=== PATIENT | male | born 1945 | race Caucasian/White ===

== ENCOUNTER 2021-01-03 18:16 | Inpatient (IN) | payer MEDICARE, OTHER ==
[~2021-01-03] VITALS: Ht 172.7 cm; Wt 76.7 kg
[~2021-01-03 18:16] MED LIST: KEFLEX CAP 500500 MG PO
[2021-01-03 19:32] LABS: HEMOGLOBIN 13.7 gm/dl (14.0-17.5); RED BLOOD COUNT 4.59 M/UL (4.20-5.50); WHITE BLOOD COUNT 8.7 K/UL (4.5-11.0)
[2021-01-03 19:59] LABS: BUN/CREATININE RATIO 13 (0-10)
[2021-01-03 20:52] LABS: ADENOVIRUS F 40/41 Not Detected (Negative); ASTROVIRUS Not Detected (Negative); CAMPYLOBACTER Not Detected (Negative); CLOSTRIDIUM DIFFICILE TOX A/B Not Detected (Negative); CRYPTOSPORIDIUM Not Detected (Negative); E.COLI 0157 Not Detected (Negative); ENTAMOEBA HISTOLYTICA Not Detected (Negative); ENTEROAGGREGATIVE E.COLI (EAEC Not Detected (Negative); ENTEROPATHOGENIC E.COLI (EPEC) Not Detected (Negative); ENTEROTOXIGENIC E.COLI (ETEC) Not Detected (Negative); GIARDIA LAMBLIA Not Detected (Negative); NOROVIRUS GI/GII Not Detected (Negative); PLESIOMONAS SHIGELLOIDES Not Detected (Negative); ROTOVIRUS A Not Detected (Negative); SALMONELLA Not Detected (Negative); SAPOVIRUS Not Detected (Negative); SHIG/ENTEROINVAS.ECOLI (EIEC) Not Detected (Negative); SHIGA-LIK TOX.PRO.E.COLI (STEC Not Detected (Negative); VIBRIO Not Detected (Negative); VIBRIO CHOLERAE Not Detected (Negative); YERSINIA ENTEROCOLITICA Not Detected (Negative)
[2021-01-04 04:42] LABS: HEMOGLOBIN 11.5 gm/dl (14.0-17.5); RED BLOOD COUNT 3.88 M/UL (4.20-5.50); WHITE BLOOD COUNT 4.8 K/UL (4.5-11.0)
[2021-01-04 05:16] LABS: BUN/CREATININE RATIO 16 (0-10)
[2021-01-04] MEDS ORDERED: PROAIR DIGIHAL90 MCG INH (12:50)
[2021-01-04] MEDS ORDERED: OXYCODONE-ACET1 EACH PO (12:50)
[2021-01-04] MEDS ORDERED: ATORVASTATIN CA40 MG PO (12:51)
[2021-01-04] MEDS ORDERED: BUPROPION HCL150 M1 PO (12:52)
[2021-01-04] MEDS ORDERED: LISINOPRIL10 MG PO (12:53)
[2021-01-04] MEDS ORDERED: FINASTERIDE5 MG PO (12:53)
[2021-01-04] MEDS ORDERED: CLOPIDOGREL75 MG PO (12:53)
[2021-01-04] MEDS ORDERED: METOPROLOL SUCC50 MG PO (12:54)
[2021-01-04] MEDS ORDERED: PANTOPRAZOLE SO20 MG PO (12:54)
[2021-01-04] MEDS ORDERED: CYCLOBENZAPRINE10 MG PO (12:55)
[2021-01-04] MEDS ORDERED: FLOMAX 0.4 MG0.4 MG PO (12:55)
[2021-01-04] MEDS ORDERED: ZOCOR40 MG PO (12:58)
[2021-01-04] MEDS ORDERED: NITROSTAT0.4 MG SL (12:59)
[2021-01-04] MEDS ORDERED: SPIRIVA HANDIH18 MCG INH (13:00)
[2021-01-04] MEDS ORDERED: ASPIRIN EC81 MG PO (13:00)
[2021-01-05 04:33] LABS: HEMOGLOBIN 13.6 gm/dl (14.0-17.5); RED BLOOD COUNT 4.6 M/UL (4.20-5.50); WHITE BLOOD COUNT 6.6 K/UL (4.5-11.0)
[2021-01-05 04:56] LABS: BUN/CREATININE RATIO 28 (0-10)
[2021-01-06 07:03] LABS: HEMOGLOBIN 13.4 gm/dl (14.0-17.5); RED BLOOD COUNT 4.53 M/UL (4.20-5.50); WHITE BLOOD COUNT 7.7 K/UL (4.5-11.0)
[2021-01-06 08:21] LABS: BUN/CREATININE RATIO 27 (0-10)
[2021-01-06] MEDS ORDERED: ELIQUIS 5 MG TAB5 MG PO (11:50)
[2021-01-06] MEDS ORDERED: DECADRON6 MG PO (11:52)
== END 2021-01-06 15:54 | disposition home health service (06) | DRG 177 ==
LOC: ER1 18:16 → CDU 21:47 → MED SURG 4 21:47
PROVIDERS: Internal Medicine; Physician Assistant; ADMIT Internal Medicine Infectious Disease
PROC: XW033E5 Introduction of Remdesivir Anti-infective into Peripheral Vein, Percutaneous Approach, New Technology Group 5 (ICD-10-PCS; principal; 2021-01-03)
PROC: 3E0333Z Introduction of Anti-inflammatory into Peripheral Vein, Percutaneous Approach (ICD-10-PCS; 2021-01-03)
PROC: 8E0ZXY6 Isolation (ICD-10-PCS; 2021-01-04)
PROC: B24BZZ4 Ultrasonography of Heart with Aorta, Transesophageal (ICD-10-PCS; 2021-01-04)
DX: U07.1 COVID-19 (principal); J12.82 Pneumonia due to coronavirus disease 2019; J96.01 Acute respiratory failure with hypoxia; N17.9 Acute kidney failure, unspecified; E87.1 Hypo-osmolality and hyponatremia; J44.0 Chronic obstructive pulmonary disease with (acute) lower respiratory infection; I69.351 Hemiplegia and hemiparesis following cerebral infarction affecting right dominant side; I48.0 Paroxysmal atrial fibrillation; I65.23 Occlusion and stenosis of bilateral carotid arteries; F17.210 Nicotine dependence, cigarettes, uncomplicated; I25.10 Atherosclerotic heart disease of native coronary artery without angina pectoris; M19.90 Unspecified osteoarthritis, unspecified site; I08.2 Rheumatic disorders of both aortic and tricuspid valves; E83.42 Hypomagnesemia; Z96.643 Presence of artificial hip joint, bilateral; E87.6 Hypokalemia; G89.29 Other chronic pain; N40.0 Benign prostatic hyperplasia without lower urinary tract symptoms; Z79.01 Long term (current) use of anticoagulants; Z79.82 Long term (current) use of aspirin; Z95.5 Presence of coronary angioplasty implant and graft; Z98.890 Other specified postprocedural states
CPT/HCPCS: ECHO; 36415; 36600; 71045; 80048; 80053; 82550; 82553; 82803; 83605; 83735; 83874; 84484; 85025; 86140; 87040; 87507; 93005; 93306; 94640; 94664; 94760; 96374; 97116-GP-CQ; 97161; 97166; 97535; 99285; J1100; J1650; J3475; J7030; Q9967; U0002

== ENCOUNTER → 2021-10-07 | Outpatient (CLI) | payer MEDICARE, OTHER ==
[~2021-10-07] MED LIST changes: +ASPIRIN EC81 MG PO; +ATORVASTATIN CA40 MG PO; +BUPROPION HCL150 M1 PO; +CLOPIDOGREL75 MG PO; +CYCLOBENZAPRINE10 MG PO; +DECADRON6 MG PO; +ELIQUIS 5 MG TAB5 MG PO; +FINASTERIDE5 MG PO; +FLOMAX 0.4 MG0.4 MG PO; +LISINOPRIL10 MG PO; +METOPROLOL SUCC50 MG PO; +NITROSTAT0.4 MG SL; +OXYCODONE-ACET1 EACH PO; +PANTOPRAZOLE SO20 MG PO; +PROAIR DIGIHAL90 MCG INH; +SPIRIVA HANDIH18 MCG INH; +ZOCOR40 MG PO
== END ==
LOC: RAD 12:43
DX: J44.9 Chronic obstructive pulmonary disease, unspecified (principal)
CPT/HCPCS: 36600; 71046; 82803

== ENCOUNTER → 2021-11-24 | Outpatient (CLI) | payer MEDICARE, OTHER | LOC: KOH-I 10:01 | DX: R91.8 Other nonspecific abnormal finding of lung field (principal) | CPT/HCPCS: 71250 ==